=== PATIENT | male | born 1985 | race African-American/Black ===

== ENCOUNTER 2016-06-25 22:28 | Emergency (ER) | payer OTHER ==
[~2016-06-25 22:28] MED LIST: ATIVAN PO; DILANTIN; DILANTIN PO; NAPROXEN PO; ORUDIS75 M1 PO
[2016-06-25 22:54] LABS: BASOPHIL# 0.1 X10e3 (0-0.3); BASOPHIL% 1.1 % (0-2.5); EOSINOPHIL% 0.6 % (0.0-7.0); HEMATOCRIT 39.5 % (38.0-50.0); HEMOGLOBIN 13.7 gm/dL (13.0-16.0); LYMPHOCYTE% 17.9 % (17.0-45.0); MEAN CELL VOLUME 100.5 FL (83-96); MEAN CORPUSCULAR HEMOGLOBIN 34.9 PG (28-34); MEAN CORPUSCULAR HGB CONC 34.7 g/dL (30-36); MEAN PLATELET VOLUME 7.2 FL (6.5-11.5); MONOCYTE# 0.6 X10e3 (0-1.0); MONOCYTE% 11.6 % (3.0-12.0); NEUTROPHIL# 3.7 X10e3 (1.5-7.1); NEUTROPHIL% 68.8 % (40-75); PLATELET COUNT 201 X10e3 (140-420); RED BLOOD COUNT 3.93 X10e (3.90-5.60); RED CELL DISTRIBUTION WIDTH 14.3 % (11.0-15.5); WHITE BLOOD COUNT 5.4 X10e3 (4.0-10.5)
[2016-06-25 22:55] LABS: DIFF IND NO
[2016-06-25 23:30] LABS: BLOOD UREA NITROGEN 7 mg/dL (9-23); CALCIUM SERUM 9.1 mg/dL (8.4-10.2); CARBON DIOXIDE 24 mmol/L (22-31); CHLORIDE 102 mmol/L (100-111); CREATININE SERUM 0.7 mg/dL (0.6-1.4); GLOM FILT RATE Estimated ABOVE60 mL/min (>60); GLUCOSE FASTING 95 mg/dL (70-110); SODIUM 135 mmol/L (135-145)
[2016-06-26 01:49] LABS: INFLUENZA A NEG (NEG); INFLUENZA B NEG (NEG)
== END 2016-06-26 02:28 | disposition home or self-care (01) ==
LOC: CED 22:28
PROVIDERS: Emergency Medicine
DX: R50.9 Fever, unspecified (principal); R51 Headache
CPT/HCPCS: 36415; 80048; 85025; 87804; 96361; 96374; 99284; J1885

== ENCOUNTER 2016-08-10 13:26 | Emergency (ER) | payer OTHER ==
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
== END 2016-08-10 14:47 | disposition home or self-care (01) ==
LOC: CED 13:26
DX: S00.81XA Abrasion of other part of head, initial encounter (principal); G40.409 Other generalized epilepsy and epileptic syndromes, not intractable, without status epilepticus; F17.200 Nicotine dependence, unspecified, uncomplicated; Z23 Encounter for immunization; Z79.899 Other long term (current) drug therapy; X58.XXXA Exposure to other specified factors, initial encounter; Y92.9 Unspecified place or not applicable
CPT/HCPCS: 70450; 72125; 90715; 99284

== ENCOUNTER 2016-09-06 01:33 | Emergency (ER) | payer OTHER ==
[2016-09-06 01:43] LABS: BASOPHIL# 0.1 X10e3 (0-0.3); BASOPHIL% 1.5 % (0-2.5); EOSINOPHIL# 0.1 X10e3 (0-0.7); EOSINOPHIL% 0.9 % (0.0-7.0); HEMATOCRIT 38.9 % (38.0-50.0); HEMOGLOBIN 12.9 gm/dL (13.0-16.0); LYMPHOCYTE# 2.1 X10e3 (1.0-3.5); MEAN CELL VOLUME 102.5 FL (83-96); MEAN CORPUSCULAR HEMOGLOBIN 34.1 PG (28-34); MEAN CORPUSCULAR HGB CONC 33.3 g/dL (30-36); MONOCYTE# 0.7 X10e3 (0-1.0); MONOCYTE% 11.9 % (3.0-12.0); NEUTROPHIL# 2.6 X10e3 (1.5-7.1); NEUTROPHIL% 47.7 % (40-75); PLATELET COUNT 209 X10e3 (140-420); RED BLOOD COUNT 3.79 X10e (3.90-5.60); RED CELL DISTRIBUTION WIDTH 14.5 % (11.0-15.5); WHITE BLOOD COUNT 5.5 X10e3 (4.0-10.5)
[2016-09-06 01:46] LABS: DIFF IND NO
[2016-09-06 01:55] LABS: AMPHETAMINE NEG (NEG); BARBITURATES NEG (NEG); BENZODIAZEPINES NEG (NEG); COCAINE NEG (NEG); MARIJUANA POS (NEG); OPIATES NEG (NEG); TRICYCLIC ANTIDEPRESSANTS NEG (NEG); U METHADONE NEG (NEG)
[2016-09-06 02:12] LABS: BLOOD UREA NITROGEN 8 mg/dL (9-23); BUN/CREATININE RATIO 8.88; CALCIUM SERUM 8.8 mg/dL (8.4-10.2); CARBON DIOXIDE 25 mmol/L (22-31); CHLORIDE 100 mmol/L (100-111); CREATININE SERUM 0.9 mg/dL (0.6-1.4); DILANTIN (PHENYTOIN) <2.5 ug/mL (10.0-20.0); GLOM FILT RATE Estimated 132.4 mL/min (>60); GLUCOSE FASTING 87 mg/dL (70-110); POTASSIUM 3.5 mmol/L (3.5-5.1); SODIUM 136 mmol/L (135-145)
[2016-09-06 02:13] LABS: ALCOHOL BLOOD 199 mg/dL (0)
== END 2016-09-06 04:27 | disposition home or self-care (01) ==
LOC: CED 01:33
PROVIDERS: Emergency Medicine
DX: G40.909 Epilepsy, unspecified, not intractable, without status epilepticus (principal); F10.129 Alcohol abuse with intoxication, unspecified; F17.210 Nicotine dependence, cigarettes, uncomplicated; Z91.14 Patient's other noncompliance with medication regimen
CPT/HCPCS: 36415; 80048; 80185; 80307; 82947; 85025; 96361; 96365; 96375; 99284; G0480; J1885; J1953

== ENCOUNTER 2016-09-12 04:22 | Emergency (ER) | payer OTHER ==
--- NOTE | ~2016-09-12 | CT71 ---
[facility] A Service of [facility] RADIOLOGY TEXT RESULTS PATIENT: LOKESH HOOKS LOCATION: [facility] : [birth year] UNIT #: [id number] AGE: [address]: Eriberto Gorman MD SEX: M ORDER DR: [id number] [place] [id number] [facility]. [place], [place] [address] [id number] E MR#: [id number] Acc #: [id number] NAME: LOKESH HOOKS : 1985 SEX: M STUDY DATE/TIME: 09/12/2016 7:09 UNIT: [facility] ROOM: STUDY DESCRIPTION: CT Head Wo Contrast Attending Physician: Eriberto Gorman M.D. Ordering Physician: Asim Beckford Aprn Primary Care Physician: Primary Care Physician No MEDICAL IMAGING REPORT This report is preliminary unless electronic signature is present EXAM CT of the head without contrast INDICATION Seizure today. TECHNIQUE CT of the head was performed without contrast. This CT exam was performed with one or more of the following radiation dose reduction techniques: automatic exposure control, adjustment of mA and/or kV according to patient size, and iterative reconstruction. Comparison with 08/10/2016 FINDINGS There is no intracranial hemorrhage, acute cortical-based infarction, focal mass lesion, or hydrocephalus. The included orbits and paranasal sinuses are unremarkable. The bone windows are unremarkable. IMPRESSION Negative noncontrast head CT. Dictated by... Shawn Mclean M.D. THIS IS AN ELECTRONICALLY VERIFIED REPORT Shawn Mclean M.D. at 09/13/2016 2:19 PM [facility]/concepcion [facility] A Service [facility] RADIOLOGY TEXT RESULTS PATIENT: LOKESH HOOKS LOCATION: [facility] : [birth year] UNIT #: [id number] AGE: [address]: Eriberto Gorman MD SEX: M ORDER DR: TD: 09/12/2016 22:27 JOB #: [id number] MEDICAL IMAGING REPORT Page 1 of 1 COPY
== END 2016-09-12 07:35 | disposition home or self-care (01) ==
LOC: CED 04:22
DX: R56.9 Unspecified convulsions (principal); R03.0 Elevated blood-pressure reading, without diagnosis of hypertension; F17.210 Nicotine dependence, cigarettes, uncomplicated
CPT/HCPCS: 70450; 80185; 82947; 96361; 96374; 99284; G0480; J1885

== ENCOUNTER 2016-09-15 23:54 | Emergency (ER) | payer OTHER ==
--- NOTE | ~2016-09-15 | CT71 ---
[facility] A Service of [facility] RADIOLOGY TEXT RESULTS PATIENT: LOKESH HOOKS LOCATION: [facility] : [birth year] UNIT #: [id number] AGE: [address]: Deshawn El MD SEX: M ORDER DR: [id number] [facility] [address]. [place], [place] [address] [id number] E MR#: [id number] Acc #: [id number] NAME: LOKESH HOOKS : 1985 SEX: M STUDY DATE/TIME: 09/16/2016 01:28 UNIT: [facility] ROOM: STUDY DESCRIPTION: CT Head Wo Contrast Attending Physician: Deshawn El M.D. Ordering Physician: Morro Yang D.O. Primary Care Physician: Primary Care Physician No MEDICAL IMAGING REPORT This report is preliminary unless electronic signature is present EXAM Head CT, 09/16 at 01:28 INDICATIONS Seizure last night with subsequent headache and weakness. COMPARISON 09/12/2016 TECHNIQUE Axial noncontrast images were obtained from the skull base to the vertex. This CT exam was performed with one or more of the following radiation dose reduction techniques: Automatic exposure control, adjustment of mA and/or kV according to patient size, and iterative reconstruction. FINDINGS Ventricular size and configuration are normal. There is no evidence of acute infarct or hemorrhage. There are no extraaxial fluid collections. No mass lesion or mass effect is seen. There are no skull fractures. IMPRESSION Normal noncontrast head CT. Dictated by... Saul Gutierrez Jr., M.D. THIS IS AN ELECTRONICALLY VERIFIED REPORT Saul Gutierrez Jr., M.D. at 09/16/2016 6:02 AM [facility]/jennifer TD: 09/16/2016 03:47 JOB #: [id number] [facility] A Service of [facility] RADIOLOGY TEXT RESULTS PATIENT: LOKESH HOOKS LOCATION: [facility] : [birth year] UNIT #: [id number] AGE: [address]: Deshawn El MD SEX: M ORDER DR: MEDICAL IMAGING REPORT Page 1 of 1 COPY
[2016-09-16 01:58] LABS: POC - CKMB <1.0 ng/mL (0.0-7.9); POC - TROPONIN <0.05 ng/mL (<=0.05)
[2016-09-16 02:31] LABS: ACETAMINOPHEN <10 ug/mL; BLOOD UREA NITROGEN 9 mg/dL (9-23); CALCIUM SERUM 8.2 mg/dL (8.4-10.2); CARBON DIOXIDE 24 mmol/L (22-31); CHLORIDE 108 mmol/L (100-111); CREATININE SERUM 0.9 mg/dL (0.6-1.4); DILANTIN (PHENYTOIN) 3.6 ug/mL (10.0-20.0); GLOM FILT RATE Estimated 132.4 mL/min (>60); GLUCOSE FASTING 91 mg/dL (70-110); POTASSIUM 3.9 mmol/L (3.5-5.1); SALICYLATE <4.0 mg/dL; SODIUM 140 mmol/L (135-145)
[2016-09-16 02:32] LABS: ALCOHOL BLOOD 430 mg/dL (0)
[2016-09-16 12:38] LABS: URINE SOURCE CLEAN CATCH
[2016-09-16 12:54] LABS: URINE APPEARANCE CLEAR; URINE BILIRUBIN NEG (NEG); URINE BLOOD NEG (NEG); URINE COLOR YELLOW; URINE GLUCOSE NEG (NEG); URINE KETONE NEG (NEG); URINE LEUKOCYTE ESTERASE NEG (NEG); URINE NITRATE NEG (NEG); URINE PROTEIN NEG (NEG); URINE SPECIFIC GRAVITY 1.011 (1.003-1.035); URINE UROBILINOGEN 0.2 MG/DL (NEG)
[2016-09-16 12:56] LABS: CULTURE INDICATED? NO
[2016-09-16 13:04] LABS: AMPHETAMINE NEG (NEG); BARBITURATES NEG (NEG); BENZODIAZEPINES NEG (NEG); COCAINE NEG (NEG); MARIJUANA NEG (NEG); OPIATES NEG (NEG); TRICYCLIC ANTIDEPRESSANTS NEG (NEG); U METHADONE NEG (NEG)
== END 2016-09-16 14:40 | disposition home or self-care (01) ==
LOC: CED 23:54
PROVIDERS: Emergency Medicine
DX: G40.909 Epilepsy, unspecified, not intractable, without status epilepticus (principal); F17.200 Nicotine dependence, unspecified, uncomplicated
CPT/HCPCS: 36415; 70450; 80048; 80185; 80307; 81003; 82553; 82947; 84484; 96361; 96365; 99284; G0480; J3411; J3475; Q2009

== ENCOUNTER 2016-09-16 23:26 | Emergency (ER) | payer OTHER | END 2016-09-17 06:23 | disposition left against medical advice (07) | LOC: CED 23:26 | DX: F10.129 Alcohol abuse with intoxication, unspecified (principal); F17.210 Nicotine dependence, cigarettes, uncomplicated; G40.909 Epilepsy, unspecified, not intractable, without status epilepticus; Y90.8 Blood alcohol level of 240 mg/100 ml or more | CPT/HCPCS: 36415; 99283; G0480 ==

== ENCOUNTER 2016-09-18 23:46 | Emergency (ER) | payer OTHER ==
[2016-09-19 02:40] LABS: BASOPHIL# 0.1 X10e3 (0-0.3); BASOPHIL% 2.6 % (0-2.5); EOSINOPHIL% 0.6 % (0.0-7.0); HEMATOCRIT 42.1 % (38.0-50.0); HEMOGLOBIN 14.2 gm/dL (13.0-16.0); LYMPHOCYTE# 2.2 X10e3 (1.0-3.5); LYMPHOCYTE% 57.8 % (17.0-45.0); MEAN CELL VOLUME 102.5 FL (83-96); MEAN CORPUSCULAR HEMOGLOBIN 34.7 PG (28-34); MEAN CORPUSCULAR HGB CONC 33.8 g/dL (30-36); MEAN PLATELET VOLUME 6.7 FL (6.5-11.5); MONOCYTE# 0.3 X10e3 (0-1.0); MONOCYTE% 7.3 % (3.0-12.0); NEUTROPHIL# 1.2 X10e3 (1.5-7.1); NEUTROPHIL% 31.7 % (40-75); PLATELET COUNT 284 X10e3 (140-420); RED BLOOD COUNT 4.11 X10e (3.90-5.60); RED CELL DISTRIBUTION WIDTH 14.6 % (11.0-15.5); WHITE BLOOD COUNT 3.9 X10e3 (4.0-10.5)
[2016-09-19 02:41] LABS: DIFF IND YES
[2016-09-19 03:04] LABS: BUN/CREATININE RATIO 6.25; CALCIUM SERUM 8.5 mg/dL (8.4-10.2); CREATININE SERUM 0.8 mg/dL (0.6-1.4); POTASSIUM 3.6 mmol/L (3.5-5.1)
[2016-09-19 03:08] LABS: ANISOCYTOSIS SL; PLATELET ESTIMATE NORMAL (NORMAL)
== END 2016-09-19 11:26 | disposition home or self-care (01) ==
LOC: CED 23:46
PROVIDERS: Nurse Practitioner
DX: F10.229 Alcohol dependence with intoxication, unspecified (principal); F17.210 Nicotine dependence, cigarettes, uncomplicated; R56.9 Unspecified convulsions
CPT/HCPCS: 36415; 80048; 80185; 82947; 85025; 96360; 99284; G0480

== ENCOUNTER 2016-09-19 23:51 | Emergency (ER) | payer OTHER ==
[2016-09-20 01:33] LABS: BASOPHIL# 0.1 X10e3 (0-0.3); BASOPHIL% 2.5 % (0-2.5); EOSINOPHIL% 1.3 % (0.0-7.0); HEMATOCRIT 40.9 % (38.0-50.0); HEMOGLOBIN 13.8 gm/dL (13.0-16.0); LYMPHOCYTE# 2.2 X10e3 (1.0-3.5); LYMPHOCYTE% 56.1 % (17.0-45.0); MEAN CELL VOLUME 102.2 FL (83-96); MEAN CORPUSCULAR HEMOGLOBIN 34.6 PG (28-34); MEAN CORPUSCULAR HGB CONC 33.8 g/dL (30-36); MEAN PLATELET VOLUME 6.6 FL (6.5-11.5); MONOCYTE# 0.3 X10e3 (0-1.0); MONOCYTE% 6.5 % (3.0-12.0); NEUTROPHIL# 1.3 X10e3 (1.5-7.1); NEUTROPHIL% 33.6 % (40-75); PLATELET COUNT 284 X10e3 (140-420); RED CELL DISTRIBUTION WIDTH 14.7 % (11.0-15.5); WHITE BLOOD COUNT 3.9 X10e3 (4.0-10.5)
[2016-09-20 01:34] LABS: DIFF IND YES
[2016-09-20 02:01] LABS: BUN/CREATININE RATIO 8.57; CALCIUM SERUM 8.4 mg/dL (8.4-10.2); CREATININE SERUM 0.7 mg/dL (0.6-1.4); DILANTIN (PHENYTOIN) 16.2 ug/mL (10.0-20.0); GLOM FILT RATE Estimated 146.8 mL/min (>60); POTASSIUM 3.5 mmol/L (3.5-5.1)
[2016-09-20 02:09] LABS: PLATELET ESTIMATE NORMAL (NORMAL)
[2016-09-20 03:58] LABS: AMPHETAMINE NEG (NEG); BARBITURATES NEG (NEG); BENZODIAZEPINES NEG (NEG); COCAINE NEG (NEG); MARIJUANA NEG (NEG); OPIATES NEG (NEG); TRICYCLIC ANTIDEPRESSANTS NEG (NEG); U METHADONE NEG (NEG)
== END 2016-09-20 08:11 | disposition home or self-care (01) ==
LOC: CED 23:51
PROVIDERS: Emergency Medicine
DX: G40.909 Epilepsy, unspecified, not intractable, without status epilepticus (principal); F10.129 Alcohol abuse with intoxication, unspecified
CPT/HCPCS: 36415; 80048; 80185; 80307; 82947; 85025; 99284; G0480

== ENCOUNTER 2016-09-24 00:48 | Emergency (ER) | payer OTHER ==
[2016-09-24 03:06] LABS: BASOPHIL# 0.1 X10e3 (0-0.3); BASOPHIL% 0.9 % (0-2.5); EOSINOPHIL# 0.1 X10e3 (0-0.7); EOSINOPHIL% 1.4 % (0.0-7.0); HEMATOCRIT 39.2 % (38.0-50.0); HEMOGLOBIN 13.1 gm/dL (13.0-16.0); LYMPHOCYTE# 2.2 X10e3 (1.0-3.5); LYMPHOCYTE% 29.1 % (17.0-45.0); MEAN CELL VOLUME 104.1 FL (83-96); MEAN CORPUSCULAR HEMOGLOBIN 34.8 PG (28-34); MEAN CORPUSCULAR HGB CONC 33.5 g/dL (30-36); MEAN PLATELET VOLUME 8.1 FL (6.5-11.5); MONOCYTE# 0.9 X10e3 (0-1.0); MONOCYTE% 11.2 % (3.0-12.0); NEUTROPHIL# 4.4 X10e3 (1.5-7.1); NEUTROPHIL% 57.4 % (40-75); PLATELET COUNT 262 X10e3 (140-420); RED BLOOD COUNT 3.76 X10e (3.90-5.60); RED CELL DISTRIBUTION WIDTH 14.3 % (11.0-15.5); WHITE BLOOD COUNT 7.6 X10e3 (4.0-10.5)
[2016-09-24 03:08] LABS: DIFF IND NO
[2016-09-24 03:30] LABS: ALBUMIN SERUM 3.8 g/dL (3.5-5.0); BILIRUBIN, DIRECT 0.1 mg/dL (0.0-0.2); BILIRUBIN,INDIRECT 0.2 mg/dL (0.0-0.9); BILIRUBIN,TOTAL 0.3 mg/dL (0.2-2.0); BUN/CREATININE RATIO 8.75; CALCIUM SERUM 8.4 mg/dL (8.4-10.2); CREATININE SERUM 0.8 mg/dL (0.6-1.4); DILANTIN (PHENYTOIN) 3.8 ug/mL (10.0-20.0); POTASSIUM 3.2 mmol/L (3.5-5.1); PROTEIN TOTAL SERUM 6.9 g/dL (6.0-8.3)
== END 2016-09-24 04:55 | disposition home or self-care (01) ==
LOC: CED 00:48
PROVIDERS: Student in an Organized Health Care Education/Training Program
DX: G40.909 Epilepsy, unspecified, not intractable, without status epilepticus (principal); F10.10 Alcohol abuse, uncomplicated; Z91.14 Patient's other noncompliance with medication regimen
CPT/HCPCS: 36415; 80048; 80076; 80185; 85025; 96360; 99284; G0480